=== PATIENT | female | born 1940 | race Two or more races ===

== ENCOUNTER 2023-09-20 15:52 | Emergency (ER) | payer OTHER ==
[~2023-09-20] VITALS: Ht 152.4 cm; Wt 78.0 kg
[2023-09-20] MEDS ORDERED: LOSARTAN POTASS25 MG (16:25)
[2023-09-20] MEDS ORDERED: TOPROL XL25 M1 (16:25)
[2023-09-20] MEDS ORDERED: KETOROLAC TROMETHAMINE 30 MG VIAL IM ONE (16:30)
[2023-09-20 16:51] LABS: HEMATOCRIT 41.2 % (36.0-45.00); HEMOGLOBIN 13.4 g/dL (12.0-15.00); MEAN CELL VOLUME 85.9 fL (80.00-100.00); MEAN CORPUSCULAR HEMOGLOBIN 27.8 pg (27.00-32.0); MEAN CORPUSCULAR HGB CONC 32.4 g/dl (32.0-36.0); PLATELET COUNT 311 K/uL (150-450); RED CELL DISTRIBUTION WIDTH 16.1 % (11.5-14.5)
[2023-09-20 17:10] LABS: INR 0.96; PARTIAL THROMBOPLASTIN TIME 25.1 SECONDS (22.0-34.0); PROTHROMBIN TIME 10.1 SECONDS (9.0-11.5)
[2023-09-20 17:12] LABS: CALCIUM 9.3 mg/dL (8.5-10.1); CREATININE SERUM 1.01 mg/dL (0.55-1.02); GFR 52.35; POTASSIUM 4.3 mEq/L (3.5-5.1)
[2023-09-20 18:09] LABS: PH,URINE 5.5 (5.0-8.0); URINE APPEARANCE Cloudy; URINE BILIRRUBIN Negative (NEGATIVE); URINE BLOOD Negative; URINE COLOR Yellow; URINE GLUCOSE Negative (NEGATIVE); URINE LEUKOCYTE Negative; URINE NITRATE Negative; URINE PROTEIN Negative (NEGATIVE); URINE UROBILINOGEN 0.2 E.U./dl
[2023-09-20 18:10] LABS: URINE EPITHELIAL CELLS 94.4 uL (0.0-38.8); URINE WBC 9.8 uL (0.0-23.2)
[2023-09-20] MEDS ORDERED: MOBIC7.5 MG PO (21:21)
== END 2023-09-20 21:51 | disposition left against medical advice (07) ==
LOC: ER 15:52
PROVIDERS: General Practice
DX: M79.605 Pain in left leg (principal); Z88.6 Allergy status to analgesic agent; M19.90 Unspecified osteoarthritis, unspecified site; E11.9 Type 2 diabetes mellitus without complications
CPT/HCPCS: 36415; 72170; 73551; 73701; 96372; 99284; J1885; Q9965